=== PATIENT | male | born 1990 | race Hispanic/Latino ===

== ENCOUNTER 2020-12-17 18:30 | Emergency (ER) | payer OTHER ==
[2020-12-17 18:31] VITALS: BP 158/94
[2020-12-17] MEDS ORDERED: DERMABOND TOPICAL SKIN ADHESIVE TOP ONE (19:00)
== END 2020-12-17 19:37 | disposition home or self-care (01) ==
LOC: M ED 18:30
DX: S61.210A Laceration without foreign body of right index finger without damage to nail, initial encounter (principal); W26.0XXA Contact with knife, initial encounter; Y92.018 Other place in single-family (private) house as the place of occurrence of the external cause

== ENCOUNTER → 2021-01-03 | Outpatient (REF) ==
--- NOTE | 2021-01-03 13:23 | REPPI ---
INDICATION: DDD COMPARISON: None. TECHNIQUE: AP and lateral views of the right and left ankle. FINDINGS: Right ankle demonstrates generalized age-related changes. No acute fracture or dislocation. No significant swelling. Ankle mortise intact. Left ankle demonstrates bulky protuberance involving the lateral aspect of the distal fibula/lateral malleolus which may represent old injury. No acute fracture or dislocation. Ankle mortise intact. IMPRESSION: Prominent protuberance over the left distal fibula is nonacute. Otherwise essentially age-appropriate symmetric examination. <Electronically signed by Jamal Downey > 01/03/21 [id number]
--- NOTE | 2021-01-03 13:33 | REPPI ---
INDICATION: DDD COMPARISON: None. TECHNIQUE: AP, lateral, coned-down views of the lumbar spine. FINDINGS: Three views of the lumbosacral spine demonstrate satisfactory alignment and lordosis without acute fracture / compression injury or subluxation. Degenerative disc osteophyte complex at L5-S1 includes endplate sclerosis, disc space narrowing, and osteophytosis. IMPRESSION: 1. No acute fracture / compression injury or subluxation. 2. Moderate degenerative changes at L5-S1 suggested. <Electronically signed by Jamal Downey > 01/03/21 [id number]
--- NOTE | 2021-01-03 13:37 | REPPI ---
INDICATION: DDD COMPARISON: None. TECHNIQUE: PA and lateral. FINDINGS: The mediastinum and cardiac silhouette are normal. The lung randhawa are clear and without acute consolidation, effusion, or pneumothorax. The skeletal structures are intact and normal. IMPRESSION: No acute cardiopulmonary process. <Electronically signed by Jamal Downey > 01/03/21 [id number]
== END ==
LOC: M PLAIMG 09:59
PROVIDERS: ATTEND Internal Medicine
DX: Z02.71 Encounter for disability determination (principal)

== ENCOUNTER → 2021-01-20 | Outpatient (CLI) | payer OTHER ==
--- NOTE | 2021-01-20 13:03 | REPVR ---
PROCEDURE INFORMATION: Exam: CT Right Upper Extremity Without Contrast, Hand Exam date and time: 01/20/2021 12:02 PM Age: 30 years old Clinical indication: Pain; Wrist; Right; Additional info: Carpal bossing RT hand TECHNIQUE: Imaging protocol: CT of the Right upper extremity without contrast was performed. Exam focused on the hand. Radiation optimization: All CT scans at this facility use at least one of these dose optimization techniques: automated exposure control; mA and/or kV adjustment per patient size (includes targeted exams where dose is matched to clinical indication); or iterative reconstruction. COMPARISON: No relevant prior studies available. FINDINGS: Bones/joints: Normal. No acute fracture or dislocation. Soft tissues: Normal. IMPRESSION: Unremarkable CT. Consider MRI for further evaluation. Electronically signed by: Clovis Matthews On 01/20/2021 13:02:50 PM
== END ==
LOC: M RAD 11:39
PROVIDERS: ATTEND Orthopaedic Surgery
DX: M25.831 Other specified joint disorders, right wrist (principal)

== ENCOUNTER → 2021-03-24 | Outpatient (REF) | payer OTHER ==
[2021-03-24 10:41] LABS: SEMEN APPEARANCE OPAQUE (OPAQUE)
[2021-03-24 10:42] LABS: SEMEN VISCOSITY VISCOUS (LIQUID); SPERM CONCENTRATION 33.2 M/ml (>=15.0); WBC CONCENTRATION <=1 M/ml (<=1 M/ml)
== END ==
LOC: M LAB REF 10:24
DX: Z31.41 Encounter for fertility testing (principal)

== ENCOUNTER → 2021-04-07 | Outpatient (REF) | payer OTHER ==
[2021-04-07 10:56] LABS: SEMEN APPEARANCE OPAQUE (OPAQUE); SEMEN VISCOSITY VISCOUS (LIQUID)
[2021-04-07 10:57] LABS: WBC CONCENTRATION <=1 M/ml (<=1 M/ml)
== END ==
LOC: M LAB REF 10:02
DX: N46.8 Other male infertility (principal)